=== PATIENT | female | born 1985 | race Caucasian/White ===

== ENCOUNTER 2016-04-17 12:25 | Emergency (ER) | payer OTHER ==
[~2016-04-17] VITALS: Ht 154.9 cm; Wt 63.5 kg
[2016-04-17 12:25] VITALS: BP 112/78
[~2016-04-17 12:25] MED LIST: APAP500 PO; COLACE 100 MG100 MG; DENIES; DERMOPLAST SPRA56 ML; IBUPROFEN 800800 M1 PO; LANOLIN56 GM; PRENATAL; TUCKS MEDICATE1 EAC1
[2016-04-17] MEDS ORDERED: CLEOCIN HCL150 MG PO (12:40)
[2016-04-17] MEDS ORDERED: NORCO 5-325 TA1 EACH PO (12:41)
== END 2016-04-17 13:36 | disposition home or self-care (01) ==
LOC: ER 12:25
DX: L02.416 Cutaneous abscess of left lower limb (principal); F17.210 Nicotine dependence, cigarettes, uncomplicated